=== PATIENT | female | born 1990 | race American Indian/Alaskan Native ===

== ENCOUNTER 2021-10-30 12:24 | Emergency (ER) | payer SELFPAY ==
[2021-10-30] MEDS ORDERED: ONDANSETRON 4 MG/2 ML INJ IV ONE (15:21)
[2021-10-30] MEDS ORDERED: MORPHINE 4 MG/1 ML INJ IV ONE ×2 (15:21→17:02)
[2021-10-30] MEDS ORDERED: SODIUM CHLORIDE 0.9% 1000 ML 1,000 ML IV ONE (15:21)
[2021-10-30 15:59] LABS: Basophils % (Auto) 0.3 % (0.0-1.8); Eosinophils % (Auto) 0.1 % (0.0-4.3); Hemoglobin 13.1 gm/dl (10.1-14.3); Lymphocytes % (Auto) 7.3 % (13.4-35.0); Mean Corpuscular HGB Conc 33 % (30-34); Mean Corpuscular Volume 98 fl (79-97); Monocytes # (Auto) 0.4 K/mm3 (0.0-0.8); Monocytes % (Auto) 2.6 % (0.0-7.3); Platelet Count 248 K/mm3 (140-440); Red Blood Count 4.08 M/mm3 (3.65-5.03); Red Cell Distribution Width 12.9 % (13.2-15.2)
[2021-10-30 16:14] LABS: Alanine Aminotransferase 11 units/L (7-56); Albumin 5.1 g/dL (3.9-5); Blood Urea Nitrogen 14 mg/dL (7-17); Hemolysis Index 7
[2021-10-30 16:25] LABS: BUN/Creatinine Ratio 23
[2021-10-30] MEDS ORDERED: METOCLOPRAMIDE 10 MG/2 ML INJ IV ONE (17:02)
[2021-10-30] MEDS ORDERED: diphenhydrAMINE 50 MG/ML VIAL IV ONE (17:02)
[2021-10-30 17:17] LABS: Bilirubin,Urine NEG (Negative); Blood,Urine SM (Negative); Color,Urine Yellow (Yellow); Mucus,Urine 1+ /HPF; Protein,Urine <15 mg/dL mg/dL (Negative); Urobilinogen,Urine < 2.0 mg/dL (<2.0); WBC,Urine < 1.0 /HPF (0.0-6.0)
--- NOTE | 2021-10-30 17:29 | Cat Scan Report ---
CT ABDOMEN AND PELVIS WITH CONTRAST HISTORY: ABDOMINAL PAIN, N/V 100 ML OMNI 300. COMPARISON: None. TECHNIQUE: CT images of the abdomen and pelvis were obtained following administration of intravenous contrast. All CT scans at this location are performed using CT dose reduction for ALARA by means of automated exposure control. CONTRAST: 100 ml of intravenous contrast administered. FINDINGS: Lungs/bones: Lung bases are clear. Mild degenerative changes in the spine with nothing acute. Abdomen/pelvis: The liver, gallbladder, spleen, pancreas, adrenals, kidneys, and proximal GI tract a ppear unremarkable. Urinary bladder is unremarkable. There is a small amount of pelvic free fluid, endometrial fluid, and ovarian follicles, likely physiologic in a woman of this age. Correlate with stage of menstrual cycl e. No acute colonic abnormality identified. The appendix is normal, as is the terminal ileum. IMPRESSION: 1. No acute abnormality identified. Signer Name: Justin Benitez MD Signed: 10/30/2021 5:24 PM Workstation Name: [id number]
[2021-10-30] MEDS ORDERED: KETOROLAC 30 MG/1 ML INJ IV ONE (17:37)
[2021-10-30] MEDS ORDERED: FAMOTIDINE 20 MG/2 ML INJ IV ONE (17:37)
--- NOTE | 2021-10-30 17:41 | Emergency Department Report ---
ED N/V/D HPI - General Chief complaint: Nausea/Vomiting/Diarrhea Stated complaint: FOOD POISON Source: patient Mode of arrival: Ambulatory Limitations: No Limitations - History of Present Illness Initial comments: Patient is a nulliparous 31-year-old -[place] female with no past medical history presents to the ED with complaint of acute onset persistent nausea and vomiting and diffuse abdominal pain for the last 2 days after eating at a restaurant. Patient states that no one else at home is had similar symptoms. Patient states that in the last 24 hours he is not been able to keep anything down and that in the last 8 hours she has stopped up to 6 episodes of nausea and vomiting and now unable to get anything out but dry heaving. Patient denies fever, chills, diarrhea, dizziness, syncope, chest pain or shortness of breath, sore throat, headache, lightheadedness, cough, dysuria, urinary frequency and urgency or vaginal bleeding. MD complaint: nausea, vomiting, abdominal pain (Generalized diffuse) -: Sudden, days(s) (2) Description of Vomiting: food contents, watery, bilious Associated Abdominal Pain: Yes (Diffuse) Location: diffuse Radiation: none Severity: severe Pain Scale: 7 Quality: cramping, sharp Consistency: constant Improves with: none Worsens with: eating, vomiting Context: possible food poisoning Associated Symptoms: denies other symptoms, loss of appetite, malaise, nausea/vomiting. denies: myalgias, chest pain, cough, diaphoresis, fever/chills, headaches, rash, dysuria, shortness of breath, syncope, weakness - Related Data Previous Rx's Medication Instructions Recorded Last Taken Type Dicyclomine [Bentyl] 20 mg PO Q6H PRN #30 tablet 10/30/21 Unknown Rx Famotidine [Pepcid] 20 mg PO Q12H #60 tablet 10/30/21 Unknown Rx Ondansetron [Zofran Odt] 4 mg PO Q6HR PRN #20 tab.rapdis 10/30/21 Unknown Rx Allergies Allergy/AdvReac Type Severity Reaction Status Date / Time No Known Allergies Allergy Unverified 10/30/21 13:36 ED Review of Systems ROS: Stated complaint: FOOD POISON Other details as noted in HPI Constitutional: denies: chills, fever Eyes: denies: eye pain, eye discharge, vision change ENT: denies: ear pain, throat pain Respiratory: denies: cough, shortness of breath, wheezing Cardiovascular: denies: chest pain, palpitations Endocrine: no symptoms reported Gastrointestinal: abdominal pain, nausea, vomiting. denies: diarrhea Genitourinary: denies: urgency, dysuria, discharge Musculoskeletal: denies: back pain, joint swelling, arthralgia Skin: denies: rash, lesions Neurological: denies: headache, weakness, paresthesias Psychiatric: denies: anxiety, depression Hematological/Lymphatic: denies: easy bleeding, easy bruising ED Past Medical Hx - Medications Home Medications: Home Medications Medication Instructions Recorded Confirmed Last Taken Type Dicyclomine [Bentyl] 20 mg PO Q6H PRN #30 tablet 10/30/21 Unknown Rx Famotidine [Pepcid] 20 mg PO Q12H #60 tablet 10/30/21 Unknown Rx Ondansetron [Zofran Odt] 4 mg PO Q6HR PRN #20 tab.rapdis 10/30/21 Unknown Rx ED Physical Exam - General Limitations: No Limitations General appearance: alert, in no apparent distress - Head Head exam: Present: atraumatic, normocephalic, normal inspection - Eye Eye exam: Present: normal appearance, PERRL, EOMI Pupils: Present: normal accommodation - ENT ENT exam: Present: normal exam, normal orophraynx, mucous membranes moist, TM's normal bilaterally, normal external ear exam - Neck Neck exam: Present: normal inspection, full ROM. Absent: tenderness, meningis mus, lymphadenopathy, thyromegaly - Respiratory Respiratory exam: Present: normal lung sounds bilaterally. Absent: respiratory distress, wheezes, rales, chest wall tenderness, accessory muscle use, decreased breath sounds, prolonged expiratory - Cardiovascular Cardiovascular Exam: Present: normal rhythm, bradycardia, normal heart sounds. Absent: systolic murmur, diastolic murmur, rubs, gallop - GI/Abdominal GI/Abdominal exam: Present: soft, tenderness (Palpable diffuse abdominal tenderness), normal bowel sounds. Absent: guarding, rebound, hyperactive bowel sounds, hypoactive bowel sounds, organomegaly, mass - Extremities Exam Extremities exam: Present: normal inspection, full ROM, normal capillary refill - Back Exam Back exam: Present: normal inspection, full ROM. Absent: tenderness, CVA te nderness (R), CVA tenderness (L), muscle spasm, paraspinal tenderness, vertebral tenderness - Neurological Exam Neurological exam: Present: alert, oriented X3, CN II-XII intact, normal gait, reflexes normal - Psychiatric Psychiatric exam: Present: normal affect, normal mood - Skin Skin exam: Present: warm, dry, intact, normal color. Absent: rash ED Course Vital Signs 10/30/21 13:41 Temperature 97.9 F Pulse Rate 55 L Respiratory 18 Rate Blood Pressure 144/93 [Right] O2 Sat by Pulse 100 Oximetry ED Medical Decision Making - Lab Data Result diagrams: 10/30/21 15:40 10/30/21 15:40 - Radiology Data Radiology results: report reviewed, image reviewed [facility] [address] [place] [address] Cat Scan Report Signed Patient: ASKSHI BENEDICT MR#: [id number] : 1990 Acct:[id number] Age/Sex: 31 / F ADM Date: 10/30/21 Loc: ED Attending Dr: Ordering Physician: TOMMY MAK Date of Service: 10/30/21 Procedure(s): CT abdomen pelvis w con Accession Number(s): [id number] cc: TOMMY MAK CT ABDOMEN AND PELVIS WITH CONTRAST HISTORY: ABDOMINAL PAIN, N/V 100 ML OMNI 300. COMPARISON: None. TECHNIQUE: CT images of the abdomen and pelvis were obtained following administration of intravenous contrast. All CT scans at this location are performed using CT dose reduction for ALARA by means of automated exposure control. CONTRAST: 100 ml of intravenous contrast administered. FINDINGS: Lungs/bones: Lung bases are clear. Mild degenerative changes in the spine with nothing acute. Abdomen/pelvis: The liver, gallbladder, spleen, pancreas, adrenals, kidneys, and proximal GI tract appear unremarkable. Urinary bladder is unremarkable. There is a small amount of pelvic free fluid, endometrial fluid, and ovarian follicles, likely physiologic in a woman of this age. Correlate with stage of menstrual cycle. No acute colonic abnormality identified. The appendix is normal, as is the terminal ileum. IMPRESSION: 1. No acute abnormality identified. Signer Name: Justin Benitez MD Signed: 10/30/2021 5:24 PM Workstation Name: [id number] Transcribed By: KSENIA Dictated By: Justin Benitez MD Electronically Authenticated By: Justin Benitez MD Signed Date/Time: 10/30/211723 DD/ 22 TD/TT: - Medical Decision Making This is a nulliparous 31-year-old -[place] female with no past medical h istory presents to the ED with complaint of acute onset persistent nausea and vomiting and diffuse abdominal pain for the last 2 days after eating at a restaurant. Patient states that no one else at home is had similar symptoms. Patient states that in the last 24 hours he is not been able to keep anything down and that in the last 8 hours she has stopped up to 6 episodes of nausea and vomiting and now unable to get anything out but dry heaving. In the ED, patient is alert and oriented x3 and is not in any distress. Patient is hemodynamically stable. Patient was treated for pain, also given antacids and antiemetics as well as normal saline 1 L IV bolus x1. All lab test results were reviewed and are all nonactionable except for acute leukocytosis of 14,200 possibly due to vomiting. Abdomen pelvis CT scan with contrast showed no acute abnormalities. On reevaluation, patient's nausea and vomiting and pain are well controlled. Patient passed oral fluid challenge in the ED. Patient was discharged home on prescriptions of antiemetics, antacids and antispasmodic medications. Patient was advised to maintain a clear liquid diet for 12 to 24 hours and to follow-up with her primary care physician in 5 to 7 days for reevaluation. Patient was otherwise advised return to the ED immediately if symptoms get worse. - Differential Diagnosis GERD; gastroenteritis; appendicitis; cholelithiasis; UTI; pancreatitis Critical care attestation.: If time is entered above; I have spent that time in minutes in the direct care of this critically ill patient, excluding procedure time. ED Disposition Clinical Impression: Nausea and vomiting in adult patient, Abdominal pain in female, Viral gastroe nteritis Disposition: HOME / SELF CARE / HOMELESS Is pt being admited?: No Does the pt Need Aspirin: No Condition: Stable Instructions: Viral Gastroenteritis, Adult, [id number], Abdominal Pain, Adult, [id number], Nausea and Vomiting, Adult, [id number] Additional Instructions: All lab test results were reviewed and are all nonactionable. Abdomen pelvis CT scan with contrast showed no acute abdomen or pelvis abnormalities. Your symptoms are likely due to viral gastroenteritis. Therefore maintain a clear liquid diet for 12 to 24 hours, take medication as needed for nausea and vomiting and pain as well as the antacid provided. Return to the ED immediately if symptoms get worse. Follow-up with your primary care physician in 5 to 7 days for reevaluation. Prescriptions: Dicyclomine [Bentyl] 20 mg PO Q6H PRN #30 tablet PRN Reason: abdominal pain Famotidine [Pepcid] 20 mg PO Q12H #60 tablet Ondansetron [Zofran Odt] 4 mg PO Q6HR PRN #20 tab.rapdis PRN Reason: Nausea Referrals: CLIFTON CRUZ MD [Primary Care Provider] - 3-5 Days Forms: Work/School Release Form(ED) Time of Disposition: 17:41 Print Language: CZECH
[2021-10-30 18:29] VITALS: BP 140/90
== END 2021-10-30 18:29 | disposition home or self-care (01) ==
LOC: ED 12:24
DX: A08.4 Viral intestinal infection, unspecified (principal); R10.9 Unspecified abdominal pain; R11.2 Nausea with vomiting, unspecified
CPT/HCPCS: 36415; 74177; 80053; 81001; 83690; 84703; 85025; 96361; 96374; 96375; 96376; 99284; J1200; J1885; J2270; J2405; J2765; J3490; J7030; Q9967; Q0162